=== PATIENT | male | born 1940 | race Caucasian/White ===

== ENCOUNTER 2018-02-08 06:56 | Day surgery (SDC) | payer BC ==
--- NOTE | 2018-02-05 10:24 | Pre-Procedure Note/Attestation ---
Pre-Procedure Note/Attestation Complete Prior to Procedure Planned Procedure: right Procedure Narrative: phaco with iol Indications for Procedure Pre-Operative Diagnosis: cataract Attestation I attest that I discussed the nature of the procedure; its benefits; risks and complications; and alternatives (and the risks and benefits of such alternatives ), prior to the procedure, with the patient (or the patient's legal solar sales representative). I attest that, if there was a reasonable possibility of needing a blood transfusion, the patient (or the patient's legal solar sales representative) was given the [facility] standardized written summary, pursuant to the Reza Stover Blood Safety Act ([place] Health and Safety Code # 1645, as amended). I attest that I re-evaluated the patient just prior to the surgery and that there has been no change in the patient's H&P, except as documented below: BENIGNO PAL Feb 05, 2018 10:24
--- NOTE | 2018-02-05 10:26 | Opthalmology H&P ---
Ophthalmology H&P H&P Chief Complaint: decreased vision in right eye HPI Vision Affects Ability to: read, focus/use eyes together, manage personal affairs HPI Narrative blurry vision Exam Visual Acuity: OD: 20/80 OS: 20/50 Tension: OD: 15 OS: 15 Eye Exam: normal OU: external exam, palpebral fissure-width, marginal reflex distance, levator function, corneas, anterior chambers; findings: lens - OD: ns OS: ns, fundus exam - npdr ou Assessment/Plan Diagnosis: (1) Nuclear age-related cataract, right eye Treatment Plan: cataract extraction w/ lens implant Goals of Treatment: improvement of vision, enhance quality of life Attestation Attestation The risks and benefits of the surgery as well as alternative procedures were explained to the patient in detail. BENIGNO PAL Feb 05, 2018 10:26
[~2018-02-08] VITALS: Ht 175.3 cm; Wt 129.3 kg
[2018-02-08] MEDS ORDERED: Akten 3.5% 1ml Btl RIGHT EYE ONE (07:00)
[2018-02-08] MEDS ORDERED: Pred Forte 1% Opth Susp 1ml ONE (07:00)
[2018-02-08] MEDS ORDERED: Dexamethasone 4mg/ml vial ONE (07:00)
[2018-02-08] MEDS ORDERED: Pilocarpine 2% Opth 15ml Soln ONE (07:00)
[2018-02-08] MEDS ORDERED: Proparacaine 0.5% Opth Soln 15ml RIGHT EYE ONE (07:00)
[2018-02-08] MEDS ORDERED: Maxitrol Opth Oint 3.5gm ONE (07:00)
[2018-02-08] MEDS ORDERED: Tetracaine 0.5% Opth 4ml Soln RIGHT EYE ONE (07:00)
[2018-02-08] MEDS: Tropicamide 1% Opth 15ml Soln RIGHT EYE SCH ×3 (10:55→11:13)
[2018-02-08 10:56] VITALS: BP 145/81
[2018-02-08] MEDS: Phenylephrine 10% Opth Soln 5ml RIGHT EYE SCH ×3 (10:56→11:13)
[2018-02-08] MEDS: Cyclopentolate 1% Opth Sol 2ml RIGHT EYE SCH ×3 (10:56→11:14)
[2018-02-08] MEDS: Diclofenac Sod 0.1% Op Soln RIGHT EYE SCH ×3 (10:56→11:14)
[2018-02-08] MEDS: Tobramycin Op Soln 0.3% 5ml RIGHT EYE SCH ×3 (10:56→11:14)
[2018-02-08] MEDS ORDERED: ALLOPURINOL300 M1 ORAL (11:30)
[2018-02-08] MEDS ORDERED: NAFTIN40 GM TP (11:30)
[2018-02-08] MEDS ORDERED: ASPIR 8181 MG ORAL (11:30)
[2018-02-08] MEDS ORDERED: NORCO 10/3251 EA ORAL (11:30)
[2018-02-08] MEDS ORDERED: IRON PO (11:30)
[2018-02-08] MEDS ORDERED: VITAMIN D1000 UNI1 ORAL (11:30)
[2018-02-08] MEDS ORDERED: FARXIGA10 MG PO (11:30)
[2018-02-08] MEDS ORDERED: ALLERCLEAR10 MG PO (11:30)
[2018-02-08] MEDS ORDERED: CANDESARTAN-HC1 EAC1 ORAL (11:30)
[2018-02-08] MEDS ORDERED: KLOR-CON20 MEQ ORAL (11:30)
[2018-02-08] MEDS ORDERED: GABAPENTIN300 MG ORAL (11:30)
[2018-02-08] MEDS ORDERED: FUROSEMIDE40 MG ORAL (11:30)
[2018-02-08] MEDS ORDERED: MULTIVITAMINS1 EAC2 ORAL (11:30)
[2018-02-08] MEDS ORDERED: METFORMIN HCL500 M4 ORAL (11:30)
[2018-02-08] MEDS ORDERED: METOPROLOL SUCC50 MG ORAL (11:30)
[2018-02-08] MEDS ORDERED: ALBUTEROL2.5 MG/3 M INH (11:30)
[2018-02-08] MEDS ORDERED: VICTOZA 2-0.6 MG/0.1 SUBQ (11:30)
[2018-02-08] MEDS ORDERED: LIPITOR80 MG ORAL (11:30)
[2018-02-08] MEDS ORDERED: DIPHENOXYLATE-1 EACH PO (11:30)
[2018-02-08] MEDS ORDERED: NAPROXEN CR500 MG PO (11:30)
[2018-02-08] MEDS ORDERED: CALCIUM600 M1 PO (11:30)
[2018-02-08] MEDS ORDERED: Midazolam 2mg/2ml Inj ONE (11:36)
[2018-02-08] MEDS ORDERED: EPINEPHrine 1mg/1ml Amp ONE ×2 (11:50→12:54)
[2018-02-08] MEDS ORDERED: BSS 500ml btl ONE (11:51)
[2018-02-08] MEDS ORDERED: Sodium Hyaluronate 14 mg/ml 0.85ml ONE ×2 (11:51→12:46)
[2018-02-08] MEDS ORDERED: Povidone-Iodine 5% opth solution ONE (11:51)
[2018-02-08] MEDS ORDERED: acetaZOLAMIDE 500mg Inj ONE (11:51)
[2018-02-08] MEDS ORDERED: BSS 15ml BTL ONE (11:51)
[2018-02-08] MEDS ORDERED: fentaNYL 100 mcg/2 mL IV ONE (12:00)
[2018-02-08] MEDS ORDERED: LR 1000ml ONE (12:00)
[2018-02-08] MEDS ORDERED: LR 1000ml 1,000 ML IVLG SCH (12:33)
--- NOTE | 2018-02-08 12:33 | Anethesia Preoperative Eval ---
Anesthesia Pre-op PMH/ROS General Date of Evaluation: Feb 08, 2018 Time of Evaluation: 11:50 Anesthesiologist: Marixa ASA Score: ASA 3 Mallampati Score Class I : Soft palate, uvula, fauces, pillars visible Class II: Soft palate, uvula, fauces visible Class III: Soft palate, base of uvula visible Class IV: Only hard plate visible Mallampati Classification: Class III Surgeon: Ernestina Diagnosis: R eye cataract Surgical Procedure: R eye cataract extraction Anesthesia History: none Allergies: Coded Allergies: No Known Allergies (Unverified , 02/08/18) Medications: see eMAR Past Medical History Cardiovascular: Reports: HTN, CAD - no recent CP s/p CABG 1998 Pulmonary: Reports: COPD, HENRY Gastrointestinal/Genitourinary: Reports: GERD; Denies: CRI, ESRD, other Neurologic/Psychiatric: Reports: depression/anxiety; Denies: dementia, CVA, TIA, other Endocrine: Reports: DM; Denies: hypothyroidism, steroids, other HEENT: Reports: cataract (L), cataract (R); Denies: glaucoma, EGEGIK (L), EGEGIK (R), other Hematology/Immune: Denies: anemia, DVT, bleeding disorder, other Musculoskeletal/Integumentary: Reports: DJD Other: obesity - morbid obesity PMH Narrative: as above PSxH Narrative: see H&P Anesthesia Pre-op Phys. Exam Physician Exam Last Vital Signs Date Time Temp Pulse Resp B/P (MAP) Pulse Ox O2 Delivery O2 Flow Rate FiO2 02/08/18 11:15 Room Air 02/08/18 10:56 97.3 66 18 145/81 (102) 95 97.3 Constitutional: NAD Neurologic: CN 2-12 intact Cardiovascular: RRR, no M/R/G Respiratory: other - mild dyspnea at rest Gastrointestinal: other - obesity Airway Exam Mallampati Score: Class III MO: limited Neck: short ROM: limited Teeth: missing Dentures: no upper, no lower Anesthesia Pre-op A/P Labs see chart Studies Pre-op Studies: EKG - SR Risk Assessment & Plan Assessment: ASA 3 Plan: MAC Status Change Before Surgery: No Pre-Antibiotics Drug: none Donta Calvin MD Feb 08, 2018 12:33
[2018-02-08] MEDS ORDERED: fentaNYL 100 mcg/2 mL IV PRN (12:45)
[2018-02-08] MEDS ORDERED: DiphenhydrAMINE 50mg/ml Inj IVP PRN (12:45)
[2018-02-08 13:07] VITALS: BP 148/75
[2018-02-08 13:12] VITALS: BP 150/80
--- NOTE | 2018-02-08 13:16 | Immediate Post-Op Evaluation ---
Immediate Post-Op Evalulation Immediate Post-Op Evalulation Procedure: R eye catqaract extraction with IOL Date of Evaluation: Feb 08, 2018 Time of Evaluation: 13:15 IV Fluids: 400 Blood Products: none Estimated Blood Loss: none` Urinary Output: none Blood Pressure Systolic: 158 Blood Pressure Diastolic: 87 Pulse Rate: 68 Respiratory Rate: 24 O2 Sat by Pulse Oximetry: 96 Temperature (Fahrenheit): 97.7 Pain Score (1-10): 2 Nausea: No Vomiting: No Complications none Patient Status: awake, patent, none Hydration Status: adequate Donta Calvin MD Feb 08, 2018 13:16
[2018-02-08 13:27] VITALS: BP 154/83
[2018-02-08 13:40] VITALS: BP 154/92
[2018-02-08 13:55] VITALS: BP 159/85
[2018-02-09 07:44] VITALS: BP 152/76
--- NOTE | 2018-02-09 07:44 | 48 Hour Post Anesthesia Eval ---
Post Anesthesia Evaluation Procedure: R eye catqaract extraction with IOL Date of Evaluation: Feb 08, 2018 Time of Evaluation: 14:12 Blood Pressure Systolic: 152 0: 76 Pulse Rate: 68 Respiratory Rate: 24 Temperature (Fahrenheit): 97.6 O2 Sat by Pulse Oximetry: 98 Airway: patent Nausea: No Vomiting: No Pain Intensity: 1 Hydration Status: adequate Cardiopulmonary Status: stable Mental Status/LOC: patient returned to baseline Follow-up Care/Observations: n/a Post-Anesthesia Complications: none Follow-up care needed: ready to discharge Donta Calvin MD Feb 09, 2018 07:44
--- NOTE | 2018-02-10 15:01 | Brief Operative Note ---
Immediate Post Operative Note Operative Note Chief Complaint: blurry vision Pre-op Diagnosis: cataract, OD Procedure: phaco with IOL Post-op Diagnosis: Pseudophakia Post-op Diagnosis: same as pre-op Findings: consistent w/pre-op dx studies Surgeon: Ernestina Anesthesiologist: Marixa Anesthesia: MAC Specimen: none Complications: none Condition: stable Fluids: LR Estimated Blood Loss: none Drains: none Implant(s) used?: Yes BENIGNO PAL Feb 10, 2018 15:01
--- NOTE | 2018-02-10 15:02 | Operative Note - PDOC ---
Operative Note Operative Note Date of Operation/Procedure: Feb 08, 2018 Chief Complaint: blurry vision Pre-op Diagnosis: cataract, OD Procedure: phaco with IOL Post-op Diagnosis: Pseudophakia Post-op Diagnosis: same as pre-op Operative Findings: consistent w/pre-op dx studies Surgeon: Ernestina Anesthesiologist: Marixa Anesthesia: MAC Specimen: none Complications: none Condition: stable Fluids: LR Estimated Blood Loss: none Drains: none Implant(s) used?: Yes Indications for Procedure cataract Description of Procedure This patient has been complaining visually significant cataract in the affected eye with the best corrected visual acuity under moderate glare conditions worse. The patient complains of difficulties with glare in performing activities of daily living and wants to manage personal affairs with comfort and accuracy and see well enough to move with safety at home and outdoors. The risks, benefits and alternatives of the procedure were discussed with the patient in the office prior to scheduling surgery. All questions from the patient were answered after the surgical procedure was explained in detail. The risks of the procedure as explained to the patient include, but are not limited to, pain, infection, bleeding, loss of vision, retinal detachment, need for further surgery, loss of lens nucleus, double vision, etc. Alternative procedures were discussed which include, to do nothing or seek a second opinion. Informed consent for this procedure was obtained from the patient. The patient was referred to a primary care physician for a cardiopulmonary clearance prior to surgery, after proper evaluation was done patient was properly scheduled for outpatient surgery. The patient was brought to the operating room where the anesthesiologist established I.V. lines and cardiac monitoring leads. Mild intravenous sedation was administered. The patient was then prepared with a 5% solution of povidone -iodine to the conjunctival fornix and lashes, and a 5% solution of povidone- iodine to the lids and periorbital skin. The patient was then draped in the usual sterile fashion. A lid speculum was then placed in the operative eye. A keratome blade was then used to create a biplanar incision into the anterior chamber. Viscoelastics was then instilled into the anterior chamber. A 3-mm single pass clear corneal incision was made just anterior to the vascular arcade of the temporal limbus using a keratome. Anterior capsulorrhexis was created. The nucleus was hydrodissected and hydrodelineated, and was freely movable in the capsular bag. The nucleus was then phacoemulsified using a quadrantic [id number] technique. Following the deep groove formation, the lens was split bimanually and the resultant quadrants and cortical material was removed under vacuum burst -mode phacoemulsification. Peripheral cortex was removed with the irrigation and aspiration handpiece. The capsular bag was expanded with viscoelastic. The intraocular lens was then inspected for right power and size and thought to be satisfactory. The implant was inspected under the microscope and found to be free of defects. The implant was inserted into the cartridge system under viscoelastic and placed in the capsular bag. The trailing haptic was positioned with the cartridge system. Viscoelastics was removed from the anterior chamber using the irrigation and aspiration unit. The corneal wound was then tested for leaks and none were found. The lid speculum were then removed. Sponge and needle counts were correct. An eye patch and shield were placed over the operative eye. The patient was taken to the recovery room in stable condition. There were no complications. The patient tolerated the procedure well. The patient was then transferred to the ambulatory surgery unit in stable and satisfactory condition , was given detailed written instructions and asked to follow up in the office the next day. BENIGNO PAL Feb 10, 2018 15:02
== END 2018-02-08 14:10 | disposition home or self-care (01) ==
LOC: SUR 06:56
DX: H25.11 Age-related nuclear cataract, right eye (principal); I10 Essential (primary) hypertension; I25.10 Atherosclerotic heart disease of native coronary artery without angina pectoris; Z95.1 Presence of aortocoronary bypass graft; J44.9 Chronic obstructive pulmonary disease, unspecified; G47.33 Obstructive sleep apnea (adult) (pediatric); K21.9 Gastro-esophageal reflux disease without esophagitis; F32.9 Major depressive disorder, single episode, unspecified; F41.9 Anxiety disorder, unspecified; E11.9 Type 2 diabetes mellitus without complications; M19.90 Unspecified osteoarthritis, unspecified site; E66.01 Morbid (severe) obesity due to excess calories; Z85.46 Personal history of malignant neoplasm of prostate; Z96.651 Presence of right artificial knee joint
CPT/HCPCS: 66984; 82962; J0171; J1100; J1120; J2250; J3010; J3370; J7120; V2632; 94003; 94150